=== PATIENT | female | born 1995 | race African-American/Black ===

== ENCOUNTER 2017-08-16 20:11 | Emergency (ER) | payer SELFPAY ==
[~2017-08-16] VITALS: Ht 170.2 cm; Wt 80.4 kg
[2017-08-16] MEDS ORDERED: AZITHROMYCIN 500 MG TABLET PO ONE (21:00)
[2017-08-16] MEDS ORDERED: CEFTRIAXONE 250 MG IM ONE (21:00)
[2017-08-16] MEDS ORDERED: AZITHROMYCIN 500 MG TABLET ONE (21:38)
[2017-08-16] MEDS ORDERED: LIDOCAINE-MPF 1%, 2ML ONE (21:38)
[2017-08-16] MEDS ORDERED: CEFTRIAXONE 250 MG ONE (21:38)
[2017-08-16 22:02] LABS: CLUE CELLS PRESENT (NONE SEEN); WET PREP WBCS FEW (FEW)
[2017-08-16 22:23] LABS: CULTURE INDICATED? YES; MICROSCOPIC INDICATED
[2017-08-16 22:46] VITALS: BP 119/69
== END 2017-08-16 22:48 | disposition home or self-care (01) ==
LOC: ED 22:37
DX: N30.00 Acute cystitis without hematuria (principal); N76.0 Acute vaginitis; B96.89 Other specified bacterial agents as the cause of diseases classified elsewhere; F17.200 Nicotine dependence, unspecified, uncomplicated
CPT/HCPCS: 36415; 81001; 84703; 87077; 87086; 87186; 87210; 87491; 87591; 87808; 96372; 99284; J0696

== ENCOUNTER 2018-09-27 12:45 | Emergency (ER) | payer BC, OTHER ==
[~2018-09-27] VITALS: Ht 170.2 cm; Wt 86.5 kg
--- NOTE | 2018-09-27 13:26 | NUR ---
THIS IS A 23Y/O FEMALE THAT ARRIVES TO ED WT C/O "SUPER HANGOVER" THAT HAS NOT RESOLVED IN TWO DAYS. PT WENT DRINKING ON HER BIRTHDAY AND DRANK HEAVILY. PT NO REPORTS N/V/D X 2 DAYS AND NOT LETTING UP. PT IS ABLE TO MAKE URINE AND AMBULATE SAFELY. PT DENIES USING ANY RECREATIONAL DRUGS. PT HAS NO MEDICAL HX. PT RESTING IN BED AND UA SENT TO LAB.
[2018-09-27] MEDS ORDERED: FAMOTIDINE 20 MG/2 ML IVP ONE (13:30)
[2018-09-27] MEDS ORDERED: SODIUM CHLORIDE 0.9% 1,000ML IVBOLUS ONE (13:30)
[2018-09-27] MEDS ORDERED: SODIUM CHLORIDE FLUSH 10ML SYR IVF ONE (13:30)
[2018-09-27] MEDS ORDERED: ONDANSETRON 2MG/ML, 2ML IVPush ONE (13:30)
[2018-09-27 13:40] LABS: HCG UR SG 1.037 (1.003-1.030)
[2018-09-27 13:43] LABS: MICROSCOPIC INDICATED
[2018-09-27 13:44] LABS: CULTURE INDICATED? YES
[2018-09-27 13:59] LABS: ALANINE AMINOTRANSFERASE 15 U/L (12-78); ALBUMIN 3.3 g/dL (3.4-5.0); ANION GAP 7 mmol/L (5-15); CALCIUM 8.5 mg/dL (8.5-10.1); CHLORIDE 106 mmol/L (98-107); CREATININE 0.57 mg/dL (0.55-1.02)
[2018-09-27 14:01] LABS: ALKALINE PHOSPHATASE 68 U/L (45-117); BILIRUBIN,TOTAL 0.7 mg/dL (0.2-1.0); MEAN CORPUSCULAR HEMOGLOBIN 20.6 pg (27.0-34.8); MEAN CORPUSCULAR HGB CONC 30.5 g/dL (32.4-35.8); MEAN CORPUSCULAR VOLUME 67.3 fL (80-100); MEAN PLATELET VOLUME 8.2 fL (7.4-10.4); PLATELET COUNT 214 x10^3/uL (130-400); RED BLOOD COUNT 4.53 x10^6/uL (3.82-5.3); RED CELL DISTRIBUTION WIDTH 21.3 % (9.6-15.2); TOTAL PROTEIN 7.4 g/dL (6.4-8.2)
[2018-09-27] MEDS ORDERED: FAMOTIDINE 20 MG/2 ML ONE (14:06)
[2018-09-27] MEDS ORDERED: ONDANSETRON 2MG/ML, 2ML ONE (14:07)
[2018-09-27 14:14] VITALS: BP 108/59
[2018-09-27 14:44] LABS: BASOPHILS # (AUTO) 0.01 x10^3/uL (0-0.1); BASOPHILS % (AUTO) 0 % (0-1); EOSINOPHILS # (AUTO) 0.03 x10^3/uL (0-0.4); EOSINOPHILS % (AUTO) 1 % (1-7); LYMPHOCYTES % (AUTO) 35 % (22-44); MONOCYTES # (AUTO) 0.31 x10^3/uL (0.2-0.8); MONOCYTES % (AUTO) 9 % (2-9); NEUTROPHILS # (AUTO) 2.03 x10^3/uL (1.8-6.8); NEUTROPHILS % (AUTO) 55 % (42-75)
[2018-09-27 14:45] LABS: MD SCAN
--- NOTE | 2018-09-27 15:40 | NUR ---
Patient/Caregiver given discharge instructions and they have confirmed that they understand the instructions. Patient ambulatory with steady gait.
== END 2018-09-27 15:41 | disposition home or self-care (01) ==
LOC: ED 14:50
DX: N30.00 Acute cystitis without hematuria (principal); D50.9 Iron deficiency anemia, unspecified; R11.2 Nausea with vomiting, unspecified; R19.7 Diarrhea, unspecified
CPT/HCPCS: 36415; 80053; 81001; 81025; 83690; 85025; 87077; 87086; 87186; 96361; 96374; 96375; 99283; J2405; J3490; J7030

== ENCOUNTER 2019-08-20 20:51 | Emergency (ER) | payer BC ==
[~2019-08-20] VITALS: Ht 170.2 cm; Wt 78.2 kg
[2019-08-20] MEDS ORDERED: NORG1TAB90 PO (21:07)
--- NOTE | 2019-08-20 21:08 | NUR ---
TRISHA ETIENNE BS FOR EXAM. PT C/O NAUSEA, ABD CRAMPS, STARTED FEELING FAINT AT 1030, PASSED OUT ABOUT 1100. STATES SHE'S BEEN FASTING, ATE [employer] BUTCH TODAY. DENIES DYSPNEA, CP.
--- NOTE | 2019-08-20 21:12 | NUR ---
PT REVISED REPORT: DID NOT PASS OUT, JUST FELT FAINT.
[2019-08-20] MEDS ORDERED: [UNRECOGNIZED DRUG - OTHER] PO (21:14)
[2019-08-20] MEDS ORDERED: SODIUM CHLORIDE 0.9% 1,000ML IVBOLUS ONE (21:30)
[2019-08-20] MEDS ORDERED: SODIUM CHLORIDE FLUSH 10ML SYR IVF ONE (21:30)
--- NOTE | 2019-08-20 21:33 | NUR ---
PT AMBULATORY TO & FROM [facility] W/OUT INCIDENT; GAIT STEADY. RED URINE SPECIMEN PROVIDED.
[2019-08-20 22:00] LABS: ANION GAP 6 mmol/L (5-15); CALCIUM 8.6 mg/dL (8.5-10.1); CHLORIDE 110 mmol/L (98-107); CREATININE 0.66 mg/dL (0.55-1.02)
--- NOTE | 2019-08-20 22:12 | NUR ---
PT REPORT TO CHEKO MAURICIO. PT CARE TRANSFERRED.
[2019-08-20] MEDS ORDERED: POTASSIUM CHLORIDE 20 MEQ TAB.ER.PRT PO ONE (22:30)
[2019-08-20 22:40] LABS: MEAN CORPUSCULAR HEMOGLOBIN 20.8 pg (27.0-34.8); MEAN CORPUSCULAR HGB CONC 30.6 g/dL (32.4-35.8); MEAN CORPUSCULAR VOLUME 68.1 fL (80-100); MEAN PLATELET VOLUME 8.9 fL (7.4-10.4); PLATELET COUNT 340 x10^3/uL (130-400); RED BLOOD COUNT 4.25 x10^6/uL (3.82-5.3); RED CELL DISTRIBUTION WIDTH 21.4 % (9.6-15.2)
[2019-08-20 22:42] LABS: MD YES
[2019-08-20 22:45] LABS: ANISOCYTOSIS 1+; BASOS#(MANUAL) 0.05 x10^3/uL (0-0.1); BASOS% (MANUAL) 1 % (0-1); EOS% (MANUAL) 2 % (1-7); LYMPH#(MANUAL) 3.28 x10^3/uL (1-3.4); LYMPHS% (MANUAL) 67 % (22-44); MONOS#(MANUAL) 0.25 x10^3/uL (0.3-2.7); MONOS% (MANUAL) 5 % (2-9); SEG#(MANUAL) 1.23 x10^3/uL (1.8-6.8); SEGS% (MANUAL) 25 % (42-75)
[2019-08-20 22:46] LABS: <PLATELET ESTIMATE> ADEQUATE; <PLT MORPHOLOGY> NORMAL PLT MORPH; HYPOCHROMIA 1+; MICROCYTOSIS 1+; OVALOCYTES 1+
[2019-08-20] MEDS ORDERED: POTASSIUM CHLORIDE 20 MEQ TAB.ER.PRT ONE (22:47)
[2019-08-20 22:50] VITALS: BP 109/59
[2019-08-20] MEDS ORDERED: ONDANSETRON ODT 4 MG ONE (23:00)
--- NOTE | 2019-08-20 23:05 | NUR ---
Discharge instructions given. All questions and concerns addressed. Belongings with patient. Patient feeling slightly nauseous. Verbal order for Massiel BOSS received from Dr. Serrano.
[2019-08-20] MEDS ORDERED: ONDANSETRON ODT 4 MG PO ONE (23:30)
== END 2019-08-20 23:09 | disposition home or self-care (01) ==
LOC: ED 22:45
DX: R55 Syncope and collapse (principal); D62 Acute posthemorrhagic anemia; E87.6 Hypokalemia; R42 Dizziness and giddiness; R94.31 Abnormal electrocardiogram [ECG] [EKG]
CPT/HCPCS: 36415; 71045; 80048; 82040; 84703; 85025; 93005; 96360; 99285; J7030; Q0162

== ENCOUNTER 2020-05-18 20:18 | Emergency (ER) | payer BC, MEDICAID ==
[~2020-05-18] VITALS: Ht 170.2 cm; Wt 76.0 kg
[~2020-05-18 20:18] MED LIST: NORG1TAB90 PO; [UNRECOGNIZED DRUG - OTHER] PO
--- NOTE | 2020-05-18 20:38 | NUR ---
Patient presents to ER c/o upper quad abd pain since today. Denies N/V/D. Slight odor to urine. Denies burning/pain with urination. Patient is in NAD. REspirations even and unlabored.
--- NOTE | 2020-05-18 20:47 | NUR ---
Urine collected and sent to lab.
[2020-05-18 21:06] LABS: HCG UR SG 1.015 (1.003-1.030)
[2020-05-18 21:14] LABS: MICROSCOPIC INDICATED
[2020-05-18] MEDS ORDERED: ONDANSETRON ODT 8 MG ONE (21:21)
[2020-05-18] MEDS ORDERED: FAMOTIDINE 20 MG TABLET ONE (21:21)
--- NOTE | 2020-05-18 21:25 | NUR ---
Patient in RAD.
[2020-05-18] MEDS ORDERED: ONDANSETRON ODT 8 MG PO ONE (21:30)
[2020-05-18] MEDS ORDERED: FAMOTIDINE 20 MG TABLET PO ONE (21:30)
[2020-05-18 21:34] VITALS: BP 126/90
--- NOTE | 2020-05-18 21:40 | NUR ---
Patient returned from RAD. LAB at bedside.
[2020-05-18 21:49] LABS: BASOPHILS % (AUTO) 0 % (0-1); EOSINOPHILS % (AUTO) 1 % (1-7); LYMPHOCYTES % (AUTO) 22 % (22-44); MEAN CORPUSCULAR HEMOGLOBIN 22.4 pg (27.0-34.8); MEAN CORPUSCULAR HGB CONC 31.4 g/dL (32.4-35.8); MEAN PLATELET VOLUME 8.6 fL (7.4-10.4); MONOCYTES % (AUTO) 7 % (2-9); NEUTROPHILS % (AUTO) 70 % (42-75); PLATELET COUNT 254 x10^3/uL (130-400); RED BLOOD COUNT 4.26 x10^6/uL (3.82-5.3); RED CELL DISTRIBUTION WIDTH 23.2 % (9.6-15.2)
[2020-05-18 21:50] LABS: MD NO
[2020-05-18 22:01] LABS: ALBUMIN 3.5 g/dL (3.4-5.0); ANION GAP 6 mmol/L (5-15); CALCIUM 8.4 mg/dL (8.5-10.1); CHLORIDE 108 mmol/L (98-107)
[2020-05-18 22:05] LABS: ALANINE AMINOTRANSFERASE 18 U/L (12-78); ALKALINE PHOSPHATASE 59 U/L (45-117); BILIRUBIN,TOTAL 1.2 mg/dL (0.2-1.0); CREATININE 0.54 mg/dL (0.55-1.02); TOTAL PROTEIN 7.1 g/dL (6.4-8.2)
--- NOTE | 2020-05-18 22:31 | NUR ---
Discharge instructions given. All questions and concerns addressed. Patient ambulatory with a steady gait. Belongings with patient.
== END 2020-05-18 22:32 | disposition home or self-care (01) ==
LOC: ED 22:26
DX: R10.84 Generalized abdominal pain (principal); R11.0 Nausea
CPT/HCPCS: 36415; 74022; 80053; 81001; 81025; 83690; 85025; 87077; 87086; 99284; Q0162

== ENCOUNTER 2020-08-26 19:42 | Emergency (ER) | payer MEDICAID ==
[~2020-08-26] VITALS: Ht 170.2 cm; Wt 81.1 kg
[2020-08-26 19:57] VITALS: BP 116/64
[2020-08-26] MEDS ORDERED: ACETAMINOPHEN 500 MG TABLET PO ONE (20:30)
[2020-08-26 20:37] LABS: MEAN CORPUSCULAR HEMOGLOBIN 27.7 pg (27.0-34.8); MEAN CORPUSCULAR HGB CONC 32.8 g/dL (32.4-35.8); MEAN PLATELET VOLUME 8.6 fL (7.4-10.4); PLATELET COUNT 177 x10^3/uL (130-400); RED BLOOD COUNT 4.46 x10^6/uL (3.82-5.3); RED CELL DISTRIBUTION WIDTH 22.3 % (9.6-15.2)
[2020-08-26 20:48] LABS: ALANINE AMINOTRANSFERASE 19 U/L (12-78); ALBUMIN 3.5 g/dL (3.4-5.0); ANION GAP 6 mmol/L (5-15); CALCIUM 8.7 mg/dL (8.5-10.1); CHLORIDE 106 mmol/L (98-107); CREATININE 0.59 mg/dL (0.55-1.02)
[2020-08-26 21:04] LABS: ALKALINE PHOSPHATASE 58 U/L (45-117); BILIRUBIN,TOTAL 0.5 mg/dL (0.2-1.0); TOTAL PROTEIN 7.4 g/dL (6.4-8.2)
[2020-08-26 21:06] LABS: LYMPH#(MANUAL) 1.52 x10^3/uL (1-3.4); LYMPHS% (MANUAL) 19 % (22-44); MONOS#(MANUAL) 0.56 x10^3/uL (0.3-2.7); MONOS% (MANUAL) 7 % (2-9); REACTIVE LYMPHS # (MANUAL) 0.08 x10^3/uL (0-0); REACTIVE LYMPHS % (MANUAL) 1 % (0-0); SEG#(MANUAL) 5.84 x10^3/uL (1.8-6.8); SEGS% (MANUAL) 73 % (42-75)
[2020-08-26 21:07] LABS: ANISOCYTOSIS 1+; HYPOCHROMIA 1+; MICROCYTOSIS 1+
[2020-08-26 21:08] LABS: <PLATELET ESTIMATE> ADEQUATE; OVALOCYTES 1+
[2020-08-26 21:09] LABS: LARGE PLATELETS 1+
--- NOTE | 2020-08-26 21:33 | NUR ---
NIX1
--- NOTE | 2020-08-26 21:50 | NUR ---
NILX2
--- NOTE | 2020-08-26 21:50 | NUR ---
NILX3
== END 2020-08-26 21:52 | disposition left against medical advice (07) ==
LOC: ED 20:00
DX: R10.9 Unspecified abdominal pain (principal); R53.83 Other fatigue; Z53.21 Procedure and treatment not carried out due to patient leaving prior to being seen by health care provider
CPT/HCPCS: 36415; 80053; 83605; 84145; 85025

== ENCOUNTER 2020-08-27 13:14 | Emergency (ER) | payer MEDICAID ==
[~2020-08-27] VITALS: Ht 170.2 cm; Wt 80.3 kg
--- NOTE | 2020-08-27 14:50 | NUR ---
PT AMBULATES TO ROOM FROM LOBBY WITH STEADY GAIT. PT CHANGING INTO GOWN AND INSTRUCTED TO REST IN GURNEY WHEN FINISHED. PT HAS CALL LIGHT WITHIN REACH.
--- NOTE | 2020-08-27 15:14 | NUR ---
PT TO [facility] AT THIS TIME.
[2020-08-27 15:27] LABS: BASOPHILS % (AUTO) 0 % (0-1); EOSINOPHILS % (AUTO) 1 % (1-7); LYMPHOCYTES % (AUTO) 21 % (22-44); MEAN CORPUSCULAR HEMOGLOBIN 28.2 pg (27.0-34.8); MEAN CORPUSCULAR HGB CONC 33.2 g/dL (32.4-35.8); MEAN PLATELET VOLUME 8.9 fL (7.4-10.4); MONOCYTES % (AUTO) 14 % (2-9); NEUTROPHILS % (AUTO) 64 % (42-75); PLATELET COUNT 173 x10^3/uL (130-400); RED BLOOD COUNT 4.46 x10^6/uL (3.82-5.3); RED CELL DISTRIBUTION WIDTH 22.3 % (9.6-15.2)
[2020-08-27 15:36] LABS: ALANINE AMINOTRANSFERASE 20 U/L (12-78); ALBUMIN 3.2 g/dL (3.4-5.0); ANION GAP 7 mmol/L (5-15); CALCIUM 9.3 mg/dL (8.5-10.1); CHLORIDE 108 mmol/L (98-107); CREATININE 0.59 mg/dL (0.55-1.02)
[2020-08-27 15:39] LABS: ALKALINE PHOSPHATASE 56 U/L (45-117); BILIRUBIN,TOTAL 0.5 mg/dL (0.2-1.0); TOTAL PROTEIN 7.4 g/dL (6.4-8.2)
--- NOTE | 2020-08-27 16:08 | NUR ---
PT URINE TUBED TO LAB AT THIS TIME.
[2020-08-27 16:29] LABS: MICROSCOPIC INDICATED
[2020-08-27] MEDS ORDERED: SODIUM CHLORIDE FLUSH 10ML SYR IVF ONE (16:30)
--- NOTE | 2020-08-27 16:33 | NUR ---
UNABLE TO ESTABLISH PIV ACCESS AT THIS TIME. WILL ATTEMPT US IV WITH ASSISTANCE OF TASK RN.
--- NOTE | 2020-08-27 17:10 | NUR ---
BREAK RN: PT IS IN CT.
[2020-08-27] MEDS ORDERED: OMNIPAQUE 350 MG/ML, 100ML BOTTLE ONE (17:18)
--- NOTE | 2020-08-27 17:23 | NUR ---
BREAK RN: PT BACK FROM CT. PT RESTING IN ROOM. VS STABLE. NO ACUTE DISTRESS NOTED. CALL LIGHT IN PLACE. WILL CONTINUE TO MONITOR WHILE PRIMARY RN IS ON BREAK.
[2020-08-27] MEDS ORDERED: SODIUM CHLORIDE 0.9% 1,000ML IVBOLUS ONE (17:30)
[2020-08-27 17:34] LABS: CLUE CELLS NONE SEEN (NONE SEEN); WET PREP WBCS FEW (FEW)
--- NOTE | 2020-08-27 17:48 | NUR ---
REPORT GIVEN TO CHEKO CORTEZ
[2020-08-27] MEDS ORDERED: CEFOTETAN PMX 2GM/50ML 50 ML IVPB ONE (18:30)
[2020-08-27] MEDS ORDERED: DOXYCYCLINE 100 MG in DEXTROSE 5% 250 ML IV SCH (18:30)
--- NOTE | 2020-08-27 18:34 | NUR ---
PT MEDICATED PER MAR
[2020-08-27] MEDS ORDERED: METRONIDAZOLE PMX 500MG/100ML 100 ML IV ONE (19:00)
[2020-08-27] MEDS ORDERED: METRONIDAZOLE PMX 500MG/100ML 100 ML ONE (19:25)
[2020-08-27 21:50] VITALS: BP 110/62
--- NOTE | 2020-08-27 21:50 | NUR ---
PT D/C WITH D/C SUMMARY AND SCRIPTS. ALL QUESTIONS ANSWERED. PIV D/C WITH TIP INTACT. PT AMBULATES TO REGISTRATION DESK WITH STEADY GAIT FOR D/C HOME AND DENIES ANY OTHER NEEDS PERTAINING TO THIS VISIT.
== END 2020-08-27 21:52 | disposition home or self-care (01) ==
LOC: ED 14:54
DX: N73.0 Acute parametritis and pelvic cellulitis (principal); N70.93 Salpingitis and oophoritis, unspecified
CPT/HCPCS: 36415; 74021; 74177; 80053; 81001; 83690; 84703; 85025; 87077; 87086; 87210; 87491; 87591; 87808; 96361; 96365; 96368; 99285; J7030; J7060; Q9967; 87186